=== PATIENT | female | born 2000 | race African-American/Black ===

== ENCOUNTER 2019-12-31 05:57 | Inpatient (IN) ==
[2019-12-31] MEDS ORDERED: MEPERIDINE 50 MG/1 ML VIAL IV PRN (06:05)
[2019-12-31] MEDS ORDERED: BUTORPHANOL 2 MG/ML VIAL IV PRN (06:05)
[2019-12-31] MEDS ORDERED: ONDANSETRON 4 MG/2 ML VIAL IV PRN (06:05)
[2019-12-31] MEDS ORDERED: DINOPROSTONE 10 MG VAG.INSERT VAG ONE (06:22)
[2019-12-31] MEDS: LACTATED RINGERS 1,000 ML IV SCH ×2 (06:25→16:58)
[2019-12-31 07:44] LABS: Basophils % 0.3 % (0.0-0.8); Eosinophils # 0.1 10*3/uL (0.0-0.87); Eosinophils % 0.7 % (0.00-10.9); Hematocrit 33.5 VOL% (35.7-47.0); Hemoglobin 10.5 GM/DL (12.0-16.0); Immature Granulocytes % 0.5 %; Immature Granulocytes Absolute 0.06 #; Lymphocytes # 3.3 10*3/uL (1.4-4.0); Lymphocytes % 28.6 % (21.3-54.2); Mean Corpuscular HGB Conc 31.3 GM/DL (32-36); Mean Corpuscular Volume 83.5 FL (87-102); Mean Platelet Volume 10.9 FL (9.6-12.0); Monocytes % 7.5 % (1.7-12.7); Neutrophils % 62.4 % (38.7-73.9); Platelet Count 298 T/CUMM (130-400); Red Blood Count 4.01 MC/CUMM (3.8-5.5); Red Cell Distribution Width 14.7 % (9.3-17.3); White Blood Count 11.6 T/CUMM (4-12)
[2019-12-31 08:00] LABS: Albumin 2.6 G/DL (3.4-5.0); Bilirubin,Total 0.4 MG/DL (0.2-1.0); Osmolality,Calculated 269.8 MOS/KG (273-304); Total Protein 6.5 G/DL (6.4-8.3)
[2019-12-31] MEDS ORDERED: ACETAMINOPHEN 325 MG TABLET PO PRN (09:12)
[2019-12-31] MEDS ORDERED: FAMOTIDINE 20 MG/2 ML VIAL IV ONE (19:28)
[2019-12-31] MEDS ORDERED: CITRIC ACID/SODIUM CITRATE 30 ML UDCUP PO ONE (19:28)
[2019-12-31] MEDS ORDERED: ePHEDrine 50 MG/ML AMP IV PRN (19:28)
[2019-12-31] MEDS ORDERED: NALOXONE 0.4 MG/ML VIAL IV PRN (19:28)
[2019-12-31] MEDS ORDERED: LACTATED RINGERS 1,000 ML IV ONE (19:28)
[2019-12-31] MEDS ORDERED: fentaNYL 2 MCG/ROPIV 0.2% EPID 100 ML EPIDURAL SCH (19:30)
[2019-12-31] MEDS ORDERED: OXYTOCIN/LR 20 UNIT/1,000 ML BAG IV SCH (20:48)
[2019-12-31 22:28] LABS: Apearance,Urine CLOUDY (Clear); Bacteria,Urine Few /HPF (Few); Bilirubin,Urine Negative (Negative); Blood, Urine Small mg/dL (Negative); Glucose,Urine (UA) Negative (Negative); Ketones,Urine 80 mg/dL (Negative); Mucus,Urine Many /LPF (Occasional); Nitrite,Urine Negative (Negative); Protein,Urine 100 MG/DL; RBC,Urine 28 /HPF (0-4); Squamous Epithelial Cell,Urine Moderate /HPF (0-10); Urine Color Yellow (Yellow); Urine Specific Gravity 1.024 (1.001-1.035); Urine Urobilinogen < 2.0 EU/DL (0.2-1.0); WBC,Urine 6 /HPF (0-6)
[2020-01-01] MEDS ORDERED: miSOPROStoL 200 MCG TABLET ONE (01:34)
[2020-01-01] MEDS ORDERED: LIDOCAINE 1% 50 ML VIAL ONE (01:34)
[2020-01-01] MEDS ORDERED: METHYLERGONOVINE 0.2 MG/1 ML AMP ONE (01:35)
[2020-01-01] MEDS ORDERED: MAGNESIUM HYDROXIDE SUSP 30 ML UDCUP PO PRN (03:57)
[2020-01-01] MEDS ORDERED: ACETAMINOPHEN 325 MG TABLET PO PRN (03:57)
[2020-01-01] MEDS ORDERED: BISACODYL 10 MG SUPP RECTAL PRN (03:57)
[2020-01-01] MEDS ORDERED: LACTATED RINGERS 1,000 ML IV SCH (04:00)
[2020-01-01] MEDS ORDERED: OXYTOCIN/LR 20 UNIT/1,000 ML BAG IV SCH (05:00)
[2020-01-01 05:01] LABS: Basophils % 0.2 % (0.0-0.8); Hematocrit 29.7 VOL% (35.7-47.0); Hemoglobin 8.9 GM/DL (12.0-16.0); Immature Granulocytes % 0.7 %; Immature Granulocytes Absolute 0.12 #; Lymphocytes # 1.3 10*3/uL (1.4-4.0); Lymphocytes % 7.4 % (21.3-54.2); Mean Corpuscular Volume 86.3 FL (87-102); Mean Platelet Volume 10.6 FL (9.6-12.0); Monocytes % 8.4 % (1.7-12.7); Neutrophils % 83.3 % (38.7-73.9); Platelet Count 253 T/CUMM (130-400); Red Blood Count 3.44 MC/CUMM (3.8-5.5); Red Cell Distribution Width 14.9 % (9.3-17.3); White Blood Count 17.1 T/CUMM (4-12)
[2020-01-01] MEDS: IBUPROFEN 800 MG TABLET PO PRN ×2 (05:22→20:01)
[2020-01-01] MEDS ORDERED: BENZOCAINE 20%/MENTHOL 0.5% SPRAY 56 GM CAN TOP PRN (07:00)
[2020-01-01] MEDS: DOCUSATE SODIUM 100 MG CAPSULE PO SCH ×2 (10:15→20:00)
[2020-01-01] MEDS: IRON (CARBONYL)/VIT C/B12/FA TABLET PO SCH (15:25)
[2020-01-02] MEDS: IBUPROFEN 800 MG TABLET PO PRN (03:38)
[2020-01-02 07:16] LABS: Basophils % 0.3 % (0.0-0.8); Eosinophils # 0.1 10*3/uL (0.0-0.87); Eosinophils % 0.6 % (0.00-10.9); Hematocrit 24.8 VOL% (35.7-47.0); Hemoglobin 7.6 GM/DL (12.0-16.0); Immature Granulocytes % 0.6 %; Immature Granulocytes Absolute 0.08 #; Lymphocytes # 4.1 10*3/uL (1.4-4.0); Lymphocytes % 31.3 % (21.3-54.2); Mean Corpuscular HGB Conc 30.6 GM/DL (32-36); Mean Corpuscular Volume 86.1 FL (87-102); Mean Platelet Volume 9.7 FL (9.6-12.0); Monocytes % 7.6 % (1.7-12.7); Neutrophils % 59.6 % (38.7-73.9); Platelet Count 219 T/CUMM (130-400); Red Blood Count 2.88 MC/CUMM (3.8-5.5); Red Cell Distribution Width 15.1 % (9.3-17.3); White Blood Count 13.2 T/CUMM (4-12)
[2020-01-02 08:26] VITALS: BP 117/57
[2020-01-02] MEDS: DOCUSATE SODIUM 100 MG CAPSULE PO SCH (09:00)
[2020-01-02] MEDS: IRON (CARBONYL)/VIT C/B12/FA TABLET PO SCH (09:00)
== END 2020-01-02 13:45 | disposition home or self-care (01) | DRG 560 ==
LOC: N.LDOUT 05:57 → N.LD 06:11 → N.OB 01-01 06:33
PROVIDERS: ADMIT Obstetrics & Gynecology; ATTEND Obstetrics & Gynecology

== ENCOUNTER 2021-01-08 05:02 | Inpatient (IN) ==
[2021-01-08 06:56] LABS: Bacteria,Urine Occasional /HPF (Few); Bilirubin,Urine Negative (Negative); Blood, Urine Negative (Negative); Glucose,Urine (UA) Negative (Negative); Ketones,Urine 80 mg/dL (Negative); Mucus,Urine Many /LPF (Occasional); Nitrite,Urine Positive (Negative); Protein,Urine 30 MG/DL; RBC,Urine 3 /HPF (0-4); Squamous Epithelial Cell,Urine Occasional /HPF (0-10); Urine Appearance Slightly Hazy (Clear); Urine Color Amber (Yellow); Urine Specific Gravity 1.027 (1.001-1.035)
[2021-01-08] MEDS ORDERED: PROMETHAZINE 25 MG/1 ML VIAL IM ONE (07:55)
[2021-01-08] MEDS ORDERED: LACTATED RINGERS 1,000 ML IV ONE ×2 (08:19→22:08)
[2021-01-08 08:38] LABS: Basophils % 0.4 % (0.0-0.8); Eosinophils % 0.1 % (0.00-10.9); Hematocrit 32.6 VOL% (35.7-47.0); Hemoglobin 10.3 GM/DL (12.0-16.0); Immature Granulocytes % 0.9 %; Lymphocytes # 1.5 10*3/uL (1.4-4.0); Lymphocytes % 13.8 % (21.3-54.2); Mean Corpuscular HGB Conc 31.6 GM/DL (32-36); Mean Corpuscular Volume 79.7 FL (87-102); Mean Platelet Volume 10.5 FL (9.6-12.0); Monocytes % 7.4 % (1.7-12.7); Neutrophils % 77.4 % (38.7-73.9); Platelet Count 234 T/CUMM (130-400); Red Blood Count 4.09 MC/CUMM (3.8-5.5); Red Cell Distribution Width 15.9 % (9.3-17.3); White Blood Count 10.7 T/CUMM (4-12)
[2021-01-08 08:51] LABS: Albumin 2.9 G/DL (3.4-5.0); Bilirubin,Total 0.8 MG/DL (0.2-1.0); Calcium 9.1 MG/DL (8.5-10.1); Osmolality,Calculated 274.5 MOS/KG (273-304); Potassium 3.7 MMOL/L (3.5-5.1); Total Protein 6.6 G/DL (6.4-8.2)
[2021-01-08] MEDS: ONDANSETRON 4 MG/2 ML VIAL IV PRN ×2 (12:30→20:40)
[2021-01-08] MEDS: LACTATED RINGERS 1,000 ML IV SCH ×2 (12:30→23:42)
[2021-01-08] MEDS: BUTORPHANOL 2 MG/ML VIAL IV PRN ×3 (12:31→20:42)
[2021-01-08] MEDS ORDERED: diphenhydrAMINE 50 MG/1 ML VIAL IV PRN (22:08)
[2021-01-08] MEDS ORDERED: NALOXONE 0.4 MG/ML VIAL IV PRN (22:08)
[2021-01-08] MEDS ORDERED: ePHEDrine 50 MG/ML VIAL IV PRN (22:08)
[2021-01-08] MEDS ORDERED: CITRIC ACID/SODIUM CITRATE 30 ML UDCUP PO ONE (22:08)
[2021-01-08] MEDS ORDERED: FAMOTIDINE 20 MG/2 ML VIAL IV ONE (22:08)
[2021-01-08] MEDS ORDERED: miSOPROStoL 200 MCG TABLET ONE (22:25)
[2021-01-08] MEDS ORDERED: OXYTOCIN/LR 20 UNIT/1,000 ML BAG IV ONE (22:25)
[2021-01-08] MEDS ORDERED: TRANEXAMIC ACID 1,000 MG/10 ML VIAL ONE (22:25)
[2021-01-08] MEDS ORDERED: CARBOPROST TROMETHAMINE 250 MCG/ML AMP IM ONE (22:26)
[2021-01-08] MEDS ORDERED: METHYLERGONOVINE 0.2 MG/1 ML AMP ONE (22:26)
[2021-01-08] MEDS ORDERED: fentaNYL 2 MCG/ROPIV 0.2% EPID 100 ML EPIDURAL SCH (22:30)
[2021-01-08] MEDS ORDERED: OXYTOCIN/LR 20 UNIT/1,000 ML BAG IV SCH (23:45)
[2021-01-09] MEDS ORDERED: MEPERIDINE 50 MG/1 ML VIAL IV ONE ×2 (00:15→00:16)
[2021-01-09] MEDS ORDERED: MEPERIDINE 50 MG/1 ML VIAL ONE (00:16)
[2021-01-09 01:29] LABS: Cord Arterial Blood HCO3 15.7 MMOL/L
[2021-01-09 01:31] LABS: Cord Venous Blood HCO3 18.4 MMOL/L; Cord Venous Blood PCO2 37.9 MMHG; Cord Venous Blood PO2 30.8
[2021-01-09] MEDS ORDERED: ONDANSETRON 4 MG/2 ML VIAL IV PRN (01:32)
[2021-01-09] MEDS ORDERED: MAGNESIUM HYDROXIDE SUSP 30 ML UDCUP PO PRN (01:32)
[2021-01-09] MEDS ORDERED: BISACODYL 10 MG SUPP RECTAL PRN (01:32)
[2021-01-09] MEDS ORDERED: ACETAMINOPHEN 500 MG TABLET PO PRN (01:32)
[2021-01-09] MEDS ORDERED: LACTATED RINGERS 1,000 ML IV SCH (02:00)
[2021-01-09] MEDS: IBUPROFEN 800 MG TABLET PO PRN ×3 (02:05→20:56)
[2021-01-09] MEDS ORDERED: IBUPROFEN 800 MG TABLET PO PRN (04:30)
[2021-01-09 05:26] LABS: Basophils % 0.1 % (0.0-0.8); Hematocrit 30.6 VOL% (35.7-47.0); Hemoglobin 9.5 GM/DL (12.0-16.0); Immature Granulocytes % 1.2 %; Immature Granulocytes Absolute 0.27 #; Lymphocytes # 1.5 10*3/uL (1.4-4.0); Lymphocytes % 6.5 % (21.3-54.2); Mean Corpuscular Volume 81.4 FL (87-102); Mean Platelet Volume 10.7 FL (9.6-12.0); Neutrophils % 85.2 % (38.7-73.9); Platelet Count 232 T/CUMM (130-400); Red Blood Count 3.76 MC/CUMM (3.8-5.5); Red Cell Distribution Width 16.1 % (9.3-17.3); White Blood Count 22.2 T/CUMM (4-12)
[2021-01-09 05:57] LABS: Hypochromasia 1+; Microcytosis 1+; Platelet Estimate Adequate
[2021-01-09] MEDS: DOCUSATE SODIUM 100 MG CAPSULE PO SCH ×2 (08:41→20:56)
[2021-01-09] MEDS: IRON (CARBONYL)/VIT C/B12/FA TABLET PO SCH (08:41)
[2021-01-09 19:51] LABS: Hematocrit 29.3 VOL% (35.7-47.0); Hemoglobin 8.9 GM/DL (12.0-16.0)
[2021-01-09] MEDS: NITROFURANTOIN MACRO/MONO 100 MG CAPSULE PO SCH (20:56)
[2021-01-10] MEDS: IRON (CARBONYL)/VIT C/B12/FA TABLET PO SCH (08:49)
[2021-01-10] MEDS: DOCUSATE SODIUM 100 MG CAPSULE PO SCH ×2 (08:49→20:46)
[2021-01-10] MEDS: IBUPROFEN 800 MG TABLET PO PRN (08:49)
[2021-01-10] MEDS: NITROFURANTOIN MACRO/MONO 100 MG CAPSULE PO SCH ×2 (08:56→22:03)
[2021-01-11] MEDS: IBUPROFEN 800 MG TABLET PO PRN (08:16)
[2021-01-11] MEDS: DOCUSATE SODIUM 100 MG CAPSULE PO SCH (08:16)
[2021-01-11] MEDS: IRON (CARBONYL)/VIT C/B12/FA TABLET PO SCH (08:16)
[2021-01-11 10:04] VITALS: BP 125/60
== END 2021-01-11 11:30 | disposition home or self-care (01) | DRG 560 ==
LOC: N.LDOUT 05:02 → N.LD 05:08 → N.OB 01-09 04:29
PROVIDERS: ADMIT Obstetrics & Gynecology; ATTEND Obstetrics & Gynecology